=== PATIENT | male | born 1965 | race Caucasian/White ===

== ENCOUNTER 2017-01-15 13:42 | Emergency (ER) | payer MEDICARE, MEDICAID ==
--- NOTE | 2017-01-15 14:46 | EDM.PDOCBH ---
<OfficerNiko - Last Filed: 01/15/17 14:44> ED HPI GENERAL MEDICAL PROBLEM - General Chief Complaint: Behavioral/Psych Stated Complaint: ANXIETY Time Seen by Provider: 01/15/17 14:35 Source of Information: Reports: Patient, RN Notes Reviewed History Limitations: Reports: No Limitations - History of Present Illness INITIAL COMMENTS - FREE TEXT/NARRATIVE: 51-year-old gentleman presents emergency department today with complaint of suicidal ideation, he states he wants to harm himself does want to live anymore he does not have a plan he is also experiencing significant anxiety does have what he describes with auditory and visual hallucinations however he is not specific Generalized Pain Score (Numeric/FACES): 7 - Related Data Allergies Allergy/AdvReac Type Severity Reaction Status Date / Time Penicillins Allergy Unknown Rash Verified 01/15/17 14:18 Home Meds: Home Meds Zolpidem Tartrate [Zolpidem Tartrate] 1 tab PO BEDTIME 01/15/17 [History] Past Medical History HEENT History: Reports: Impaired Vision Psychiatric History: Reports: Addiction, Aggressive/Hostile Behaviors, Anxiety, OCD, Panic Attack, Suicidal Ideation Social & Family History - Tobacco Use Smoking Status *Q: Never Smoker Second Hand Smoke Exposure: No - Caffeine Use Caffeine Use: Reports: Coffee, Energy Drinks, Soda, Tea - Alcohol Use Days Per Week of Alcohol Use: 0 - Recreational Drug Use Recreational Drug Use: No Drug Use in Last 12 Months: No Recreational Drug Type: Reports: Other (see below) ED ROS GENERAL - Review of Systems Review Of Systems: See Below Respiratory: Reports: No Symptoms Cardiovascular: Reports: No Symptoms Psychiatric: Reports: Anxiety, Hallucinations, Suicidal Ideation ED EXAM, BEHAVIORAL HEALTH - Physical Exam Exam: See Below Exam Limited By: No Limitations General Appearance: Alert, WD/WN, No Apparent Distress Eye Exam: Bilateral Eye: Normal Inspection Respiratory/Chest: No Respiratory Distress, Lungs Clear, Normal Breath Sounds, No Accessory Muscle Use, Chest Non-Tender Cardiovascular: Regular Rate, Rhythm, No Murmur GI/Abdominal: Soft, Non-Tender Psychiatric: Alert, Flat Affect, Inattentive, Poor Eye Contact, Withdrawn, Suicidal Plan, Suicidal Thoughts COURSE, BEHAVIORAL HEALTH COMP - Course Vital Signs: Last Vital Signs Temp 36.1 C 01/16/17 07:02 Pulse 77 01/16/17 07:02 Resp 14 01/16/17 07:02 BP 100/71 01/16/17 07:02 Pulse Ox 99 01/16/17 07:02 Orders, Labs, Meds: Laboratory Tests 01/15/17 01/15/17 01/15/17 Range/Units 14:51 14:51 14:54 WBC 9.3 (4.5-11.0) K/uL RBC 5.33 (4.30-5.90) M/uL Hgb 15.7 H (12.0-15.0) g/dL Hct 47.9 (40.0-54.0) % MCV 90 (80-98) fL MCH 30 (27-31) pg MCHC 33 (32-36) % Plt Count 303 (150-400) K/uL Neut % (Auto) 75 H (36-66) % Lymph % (Auto) 17 L (24-44) % [place] % (Auto) 7 H (2-6) % Eos % (Auto) 0 L (2-4) % Baso % (Auto) 0 (0-1) % Sodium (140-148) mmol/L Potassium (3.6-5.2) mmol/L Chloride (100-108) mmol/L Carbon Dioxide (21-32) mmol/L Anion Gap (5.0-14.0) mmol/L BUN (7-18) mg/dL Creatinine (0.8-1.3) mg/dL Est Cr Clr Drug Dosing mL/min Estimated GFR (MDRD) (>60) Glucose (74-106) mg/dL Calcium (8.5-10.1) mg/dL Total Bilirubin (0.2-1.0) mg/dL AST (15-37) U/L ALT (12-78) U/L Alkaline Phosphatase (46-116) U/L Total Protein (6.4-8.2) g/dL Albumin (3.4-5.0) g/dL Globulin (2.3-3.5) g/dL Albumin/Globulin Ratio (1.2-2.2) Urine Color Yellow Urine Appearance Slightly cloudy Urine pH 6.0 (4.5-8.0) Ur Specific [place] 1.025 (1.008-1.030) Urine Protein Negative (NEGATIVE) mg/dL Urine Glucose (UA) Normal (NEGATIVE) mg/dL Urine Ketones 15 H (NEGATIVE) mg/dL Urine Occult Blood Negative (NEGATIVE) Urine Nitrite Negative (NEGAITVE) Urine Bilirubin Small (NEGATIVE) Urine Urobilinogen Normal (NORMAL) mg/dL Ur Leukocyte Esterase Negative (NEGATIVE) Urine RBC 0-5 (0-5) Urine WBC 0-5 (0-5) Ur Epithelial Cells Rare Amorphous Sediment Not seen Urine Bacteria Few Urine Mucus Packed Urine Opiates Screen Negative (NEGATIVE) Ur Oxycodone Screen Negative (NEGATIVE) Urine Methadone Screen Negative (NEGATIVE) Ur Propoxyphene Screen Negative (NEGATIVE) Ur Barbiturates Screen Negative (NEGATIVE) Ur Tricyclics Screen Negative (NEGATIVE) Ur Phencyclidine Scrn Negative (NEGATIVE) Ur Amphetamine Screen Negative (NEGATIVE) U Methamphetamines Scrn Negative (NEGATIVE) Urine MDMA Screen Negative (NEGATIVE) U Benzodiazepines Scrn Negative (NEGATIVE) U Cocaine Metab Screen Negative (NEGATIVE) U Marijuana (THC) Screen Negative (NEGATIVE) 01/15/17 Range/Units 14:54 WBC (4.5-11.0) K/uL RBC (4.30-5.90) M/uL Hgb (12.0-15.0) g/dL Hct (40.0-54.0) % MCV (80-98) fL MCH (27-31) pg MCHC (32-36) % Plt Count (150-400) K/uL Neut % (Auto) (36-66) % Lymph % (Auto) (24-44) % [place] % (Auto) (2-6) % Eos % (Auto) (2-4) % Baso % (Auto) (0-1) % Sodium 143 (140-148) mmol/L Potassium 4.3 (3.6-5.2) mmol/L Chloride 105 (100-108) mmol/L Carbon Dioxide 28 (21-32) mmol/L Anion Gap 9.8 (5.0-14.0) mmol/L BUN 13 (7-18) mg/dL Creatinine 0.8 (0.8-1.3) mg/dL Est Cr Clr Drug Dosing 95.94 mL/min Estimated GFR (MDRD) > 60 (>60) Glucose 146 H (74-106) mg/dL Calcium 9.6 (8.5-10.1) mg/dL Total Bilirubin 1.1 H D (0.2-1.0) mg/dL AST 14 L (15-37) U/L ALT 24 (12-78) U/L Alkaline Phosphatase 128 H (46-116) U/L Total Protein 7.8 (6.4-8.2) g/dL Albumin 4.1 (3.4-5.0) g/dL Globulin 3.7 H (2.3-3.5) g/dL Albumin/Globulin Ratio 1.1 L (1.2-2.2) Urine Color Urine Appearance Urine pH (4.5-8.0) Ur Specific [place] (1.008-1.030) Urine Protein (NEGATIVE) mg/dL Urine Glucose (UA) (NEGATIVE) mg/dL Urine Ketones (NEGATIVE) mg/dL Urine Occult Blood (NEGATIVE) Urine Nitrite (NEGAITVE) Urine Bilirubin (NEGATIVE) Urine Urobilinogen (NORMAL) mg/dL Ur Leukocyte Esterase (NEGATIVE) Urine RBC (0-5) Urine WBC (0-5) Ur Epithelial Cells Amorphous Sediment Urine Bacteria Urine Mucus Urine Opiates Screen (NEGATIVE) Ur Oxycodone Screen (NEGATIVE) Urine Methadone Screen (NEGATIVE) Ur Propoxyphene Screen (NEGATIVE) Ur Barbiturates Screen (NEGATIVE) Ur Tricyclics Screen (NEGATIVE) Ur Phencyclidine Scrn (NEGATIVE) Ur Amphetamine Screen (NEGATIVE) U Methamphetamines Scrn (NEGATIVE) Urine MDMA Screen (NEGATIVE) U Benzodiazepines Scrn (NEGATIVE) U Cocaine Metab Screen (NEGATIVE) U Marijuana (THC) Screen (NEGATIVE) Medications Discontinued Medications Generic Name Dose Route Start Last Admin Trade Name Freq PRN Reason Stop Dose Admin Diphenhydramine HCl 50 mg 01/15/17 17:02 01/15/17 18:00 Benadryl IM 01/15/17 17:03 50 mg ONETIME ONE Administration Haloperidol 5 mg 01/15/17 17:46 01/15/17 17:59 Haldol PO 01/15/17 17:47 5 mg ONETIME ONE Administration Haloperidol Lactate 5 mg 01/15/17 17:02 01/15/17 18:01 Haldol IM 01/15/17 17:03 Not Given ONETIME ONE Lorazepam 1 mg 01/15/17 15:25 01/15/17 15:35 Ativan PO 01/15/17 15:26 1 mg ONETIME ONE Administration Lorazepam 2 mg 01/15/17 17:02 01/15/17 18:01 Ativan IM 01/15/17 17:03 Not Given ONETIME ONE Lorazepam 2 mg 01/15/17 17:49 01/15/17 17:57 Ativan PO 01/15/17 17:50 2 mg ONETIME ONE Administration Lorazepam 1 mg 01/16/17 09:27 01/16/17 09:36 Ativan PO 01/16/17 09:28 1 mg ONETIME ONE Administration Departure - Departure Disposition: Home, Self-Care 01 Clinical Impression: Depression, Anxiety - Discharge Information Referrals: Tate Velásquez, CLAIM APPROVER [Primary Care Provider] - Forms: ED Department Discharge Care Plan Goals: appt with Tate Vaughn tomorrow at 1 pm, appt with Katelin Patel on the and later he will have appt with Ana for med evaluation. He has a [employer] worker set up for him. He will return to his apartment at [address]. He has 23 days of ambien left according to his perscription <Jenifer Jeffrey - Last Filed: 01/16/17 12:01> Departure - Departure Time of Disposition: 11:58 Condition: Fair
[2017-01-15] MEDS ORDERED: LORazepam 1 MG Tab PO ONE ×2 (15:25→17:49)
[2017-01-15] MEDS ORDERED: LORazepam 2 MG/ML MDV IM ONE (17:02)
[2017-01-15] MEDS ORDERED: diphenhydrAMINE 50 MG/ML SDV IM ONE (17:02)
[2017-01-15] MEDS ORDERED: Haloperidol Lactate 5 MG/ML SDV IM ONE (17:02)
[2017-01-15] MEDS ORDERED: Haloperidol 5 MG Tab PO ONE (17:46)
[2017-01-16] MEDS ORDERED: LORazepam 1 MG Tab PO ONE (09:27)
[2017-01-16] MEDS ORDERED: LORazepam 0.5 MG Tab PO ONE (12:03)
[2017-01-16 12:38] VITALS: BP 101/71
== END 2017-01-16 12:40 | disposition home or self-care (01) ==
LOC: JP.ED 13:42
DX: F41.9 Anxiety disorder, unspecified (principal); F32.9 Major depressive disorder, single episode, unspecified; R45.851 Suicidal ideations; Z88.0 Allergy status to penicillin
CPT/HCPCS: 36415; 80053; 80305; 81001; 85025; 96372; 99285; A9270; J1200; 99284

== ENCOUNTER 2017-03-21 07:32 | Emergency (ER) | payer MEDICARE, MEDICAID ==
[2017-03-21 07:47] VITALS: BP 127/86
--- NOTE | 2017-03-21 08:19 | EDM.PDOCBH ---
ED HPI GENERAL MEDICAL PROBLEM - General Chief Complaint: Behavioral/Psych Stated Complaint: DEPRESSED/NOT EATING/WITHDRAWL Time Seen by Provider: 03/21/17 08:14 Source of Information: Reports: Patient, RN Notes Reviewed, Other (Social work) History Limitations: Reports: No Limitations - History of Present Illness INITIAL COMMENTS - FREE TEXT/NARRATIVE: 51-year-old gentleman presents emergency department today requesting refill of Ativan. He states he has not been able to sleep for a couple of days is nauseated and can't eat is trying to wean himself off Xanax. Review of medical records show he did receive 140 Xanax on March 15 6 days prior he tells me he flushed his medication down the toilet yesterday. He was evaluated by his primary care yesterday with the same request as above primary care recommended to continue with the plan of weaning him off Xanax he does have an appointment with counseling and behavioral health however he has always canceled and no showed for these appointments. Denies suicidal ideation Generalized Pain Score (Numeric/FACES): 7 - Related Data Allergies Allergy/AdvReac Type Severity Reaction Status Date / Time Penicillins Allergy Unknown Rash Verified 03/21/17 07:50 Home Meds: Home Meds Zolpidem Tartrate [Zolpidem Tartrate] 1 tab PO BEDTIME 01/15/17 [History] ALPRAZolam [Alprazolam] 1 mg PO QID 03/21/17 [History] Past Medical History HEENT History: Reports: Impaired Vision Psychiatric History: Reports: Addiction (Benzodiazepine), Aggressive/Hostile Behaviors, Anxiety, Depression, OCD, Panic Attack, Psych Hospitalization(s), Suicide Attempt, Suicidal Ideation Dermatologic History: Reports: Other (See Below) Other Dermatologic History: melanoma Social & Family History - Tobacco Use Smoking Status *Q: Never Smoker Second Hand Smoke Exposure: No - Caffeine Use Caffeine Use: Reports: Coffee, Energy Drinks, Soda, Tea - Alcohol Use Days Per Week of Alcohol Use: 0 - Recreational Drug Use Recreational Drug Use: No Drug Use in Last 12 Months: No Recreational Drug Type: Reports: Other (see below) ED ROS GENERAL - Review of Systems Review Of Systems: See Below Constitutional: Reports: No Symptoms HEENT: Reports: No Symptoms Respiratory: Reports: No Symptoms Cardiovascular: Reports: No Symptoms GI/Abdominal: Reports: Nausea : Reports: No Symptoms Musculoskeletal: Reports: No Symptoms Skin: Reports: No Symptoms Neurological: Reports: No Symptoms Psychiatric: Reports: Agitation, Cravings. Denies: Homicidal Ideation, Suicidal Ideation ED EXAM, BEHAVIORAL HEALTH - Physical Exam Exam: See Below (Without IV) Text/Narrative:: Orientated to person place and time, appropriately dressed, well groomed, memory to recent and remote events intact, good attention and concentration, speech is of adequate rate tone and volume, good fund of knowledge, language is appropriate, pleasant and cooperative,, Mood and affect are euthymic, no pressured thoughts, denies suicidal ideation, denies homicidal ideation, no hallucinations visual or auditory, poor judgment, poor insight Exam Limited By: No Limitations General Appearance: Alert, WD/WN, No Apparent Distress Eye Exam: Left Eye: Conjunctival Injection, Bilateral Eye: Normal Fundi, Normal Inspection, PERRL Respiratory/Chest: No Respiratory Distress, Lungs Clear, Normal Breath Sounds Cardiovascular: Regular Rate, Rhythm, No Murmur GI/Abdominal: Soft, Non-Tender COURSE, BEHAVIORAL HEALTH COMP - Course Vital Signs: Last Vital Signs Temp 96.1 F 03/21/17 07:49 Pulse 89 03/21/17 07:49 Resp 16 03/21/17 07:49 BP 127/86 03/21/17 07:49 Pulse Ox 99 03/21/17 07:49 Orders, Labs, Meds: Active Orders 24 hr Category Date Time Status Peripheral IV Care [RC] . DIRECTED Care 03/21/17 08:31 Active Sodium Chloride 0.9% [Normal Saline] 1,000 ml Med 03/21/17 08:45 Active IV ASDIRECTED Sodium Chloride 0.9% [Saline Flush] Med 03/21/17 08:31 Active 10 ml FLUSH ASDIRECTED PRN Peripheral IV Insertion Adult [OM.PC] Urgent Oth 03/21/17 08:31 Ordered Medication Orders Sodium Chloride (Normal Saline) 1,000 mls @ 999 mls/hr IV ASDIRECTED PAULINO Last Admin: 03/21/17 08:48 Dose: 999 mls/hr Sodium Chloride (Saline Flush) 10 ml FLUSH ASDIRECTED PRN PRN Reason: Keep Vein Open Laboratory Tests 03/21/17 03/21/17 03/21/17 Range/Units 09:15 09:15 09:15 WBC 7.1 (4.5-11.0) K/uL RBC 5.06 (4.30-5.90) M/uL Hgb 15.0 (12.0-15.0) g/dL Hct 44.2 (40.0-54.0) % MCV 87 (80-98) fL MCH 30 (27-31) pg MCHC 34 (32-36) % Plt Count 273 (150-400) K/uL Neut % (Auto) 72 H (36-66) % Lymph % (Auto) 18 L (24-44) % [place] % (Auto) 9 H (2-6) % Eos % (Auto) 1 L (2-4) % Baso % (Auto) 0 (0-1) % Sodium 144 (140-148) mmol/L Potassium 3.7 (3.6-5.2) mmol/L Chloride 106 (100-108) mmol/L Carbon Dioxide 29 (21-32) mmol/L Anion Gap 8.8 (5.0-14.0) mmol/L BUN 12 (7-18) mg/dL Creatinine 0.8 (0.8-1.3) mg/dL Est Cr Clr Drug Dosing 92.28 mL/min Estimated GFR (MDRD) > 60 (>60) Glucose 108 H (74-106) mg/dL Calcium 8.6 (8.5-10.1) mg/dL Total Bilirubin 0.8 (0.2-1.0) mg/dL AST 16 (15-37) U/L ALT 17 (12-78) U/L Alkaline Phosphatase 105 (46-116) U/L Total Protein 6.3 L (6.4-8.2) g/dL Albumin 3.6 (3.4-5.0) g/dL Globulin 2.7 (2.3-3.5) g/dL Albumin/Globulin Ratio 1.3 (1.2-2.2) TSH, Ultra Sensitive 0.694 (0.358-3.740) uIU/mL Urine Color Urine Appearance Urine pH (4.5-8.0) Ur Specific [place] (1.008-1.030) Urine Protein (NEGATIVE) mg/dL Urine Glucose (UA) (NEGATIVE) mg/dL Urine Ketones (NEGATIVE) mg/dL Urine Occult Blood (NEGATIVE) Urine Nitrite (NEGAITVE) Urine Bilirubin (NEGATIVE) Urine Urobilinogen (NORMAL) mg/dL Ur Leukocyte Esterase (NEGATIVE) Urine RBC (0-5) Urine WBC (0-5) Ur Epithelial Cells Amorphous Sediment Urine Bacteria Urine Mucus Urine Opiates Screen (NEGATIVE) Ur Oxycodone Screen (NEGATIVE) Urine Methadone Screen (NEGATIVE) Ur Propoxyphene Screen (NEGATIVE) Ur Barbiturates Screen (NEGATIVE) Ur Tricyclics Screen (NEGATIVE) Ur Phencyclidine Scrn (NEGATIVE) Ur Amphetamine Screen (NEGATIVE) U Methamphetamines Scrn (NEGATIVE) Urine MDMA Screen (NEGATIVE) U Benzodiazepines Scrn (NEGATIVE) U Cocaine Metab Screen (NEGATIVE) U Marijuana (THC) Screen (NEGATIVE) 03/21/17 03/21/17 Range/Units 10:25 10:25 WBC (4.5-11.0) K/uL RBC (4.30-5.90) M/uL Hgb (12.0-15.0) g/dL Hct (40.0-54.0) % MCV (80-98) fL MCH (27-31) pg MCHC (32-36) % Plt Count (150-400) K/uL Neut % (Auto) (36-66) % Lymph % (Auto) (24-44) % [place] % (Auto) (2-6) % Eos % (Auto) (2-4) % Baso % (Auto) (0-1) % Sodium (140-148) mmol/L Potassium (3.6-5.2) mmol/L Chloride (100-108) mmol/L Carbon Dioxide (21-32) mmol/L Anion Gap (5.0-14.0) mmol/L BUN (7-18) mg/dL Creatinine (0.8-1.3) mg/dL Est Cr Clr Drug Dosing mL/min Estimated GFR (MDRD) (>60) Glucose (74-106) mg/dL Calcium (8.5-10.1) mg/dL Total Bilirubin (0.2-1.0) mg/dL AST (15-37) U/L ALT (12-78) U/L Alkaline Phosphatase (46-116) U/L Total Protein (6.4-8.2) g/dL Albumin (3.4-5.0) g/dL Globulin (2.3-3.5) g/dL Albumin/Globulin Ratio (1.2-2.2) TSH, Ultra Sensitive (0.358-3.740) uIU/mL Urine Color Yellow Urine Appearance Cloudy Urine pH 7.0 (4.5-8.0) Ur Specific [place] 1.015 (1.008-1.030) Urine Protein Negative (NEGATIVE) mg/dL Urine Glucose (UA) Normal (NEGATIVE) mg/dL Urine Ketones 15 H (NEGATIVE) mg/dL Urine Occult Blood Negative (NEGATIVE) Urine Nitrite Negative (NEGAITVE) Urine Bilirubin Negative (NEGATIVE) Urine Urobilinogen Normal (NORMAL) mg/dL Ur Leukocyte Esterase Negative (NEGATIVE) Urine RBC Not seen (0-5) Urine WBC Not seen (0-5) Ur Epithelial Cells Not seen Amorphous Sediment Moderate Urine Bacteria Not seen Urine Mucus Not seen Urine Opiates Screen Negative (NEGATIVE) Ur Oxycodone Screen Negative (NEGATIVE) Urine Methadone Screen Negative (NEGATIVE) Ur Propoxyphene Screen Negative (NEGATIVE) Ur Barbiturates Screen Negative (NEGATIVE) Ur Tricyclics Screen Negative (NEGATIVE) Ur Phencyclidine Scrn Negative (NEGATIVE) Ur Amphetamine Screen Negative (NEGATIVE) U Methamphetamines Scrn Negative (NEGATIVE) Urine MDMA Screen Negative (NEGATIVE) U Benzodiazepines Scrn Positive H (NEGATIVE) U Cocaine Metab Screen Negative (NEGATIVE) U Marijuana (THC) Screen Negative (NEGATIVE) Medications Generic Name Dose Route Start Last Admin Trade Name Freq PRN Reason Stop Dose Admin Sodium Chloride 1,000 mls @ 999 mls/hr 03/21/17 08:45 03/21/17 08:48 Normal Saline IV 999 mls/hr ASDIRECTED PAULINO Administration Sodium Chloride 10 ml 03/21/17 08:31 Saline Flush FLUSH ASDIRECTED PRN Keep Vein Open Discontinued Medications Generic Name Dose Route Start Last Admin Trade Name Freq PRN Reason Stop Dose Admin Ondansetron HCl 4 mg 03/21/17 08:31 03/21/17 09:18 Zofran IVPUSH 03/21/17 08:32 4 mg ONETIME ONE Administration Departure - Departure Time of Disposition: 11:24 Disposition: Home, Self-Care 01 Condition: Fair Clinical Impression: Addiction to drug - Discharge Information Referrals: Tate Velásquez NP [Primary Care Provider] - Forms: ED Department Discharge Additional Instructions: Please follow-up with your primary care provider and your social media community manager for further placement issues - My Orders Last 24 Hours: My Active Orders 03/21/17 08:31 Peripheral IV Care [RC] . DIRECTED Sodium Chloride 0.9% [Saline Flush] 10 ml FLUSH ASDIRECTED PRN Peripheral IV Insertion Adult [OM.PC] Urgent 03/21/17 08:45 Sodium Chloride 0.9% [Normal Saline] 1,000 ml IV ASDIRECTED - Assessment/Plan Last 24 Hours: My Active Orders 03/21/17 08:31 Peripheral IV Care [RC] . DIRECTED Sodium Chloride 0.9% [Saline Flush] 10 ml FLUSH ASDIRECTED PRN Peripheral IV Insertion Adult [OM.PC] Urgent 03/21/17 08:45 Sodium Chloride 0.9% [Normal Saline] 1,000 ml IV ASDIRECTED Plan: Assessment Acuity = chronic Site and laterality = generalized anxiety disorder with dependence on benzodiazepines, blepheritis Etiology = unclear etiology Manifestations = craving Location of injury = Home Lab values = none Plan I informed him because he recently had a refill of 140 Xanax to 6 days prior and he does have a primary care in [facility] who doesn't plan to help with his benzodiazepine addiction I would not be providing any benzodiazepine medication I did offer him Zofran I also offered him placement in a detox facility for his addiction. He has declined both of these measures states he will not leave until he receives Ativan. I called administration for the emergency department to review and discuss options with him. After consultation with administration he agreed to 1 L of IV fluids, IV Zofran 4 mg and a prescription for Zofran and he would leave peacefully follow-up with his primary care. The initial IV blew and he refused a second IV, he states he needs to be admitted to hospital because he is sick I offered lab work and he then stated he was mentally ill I offered admission to a psychiatric facility which he declined states he wants to be admitted here, therefore will draw lab work CBC, CMP UA and drug screen. While waiting for lab work and urine results he did complain of difficulty seeing out of his left eye with increased redness that has been ongoing for a month vision was acceptable at 20/30 examination I please see record for details additional diagnosis of blepharitis will try warm compresses also placed on erythromycin antibiotics. I did review his lab work with him which included a CBC, CMP and thyroid all normal urinalysis normal urine drug screen positive for benzodiazepines,, he is now requesting foster care placement this has been reviewed in the past with the social media community manager recommend he continue to work on that he has been placed in crisis beds in [place] where he left the next day so that is not an option at this time. Therefore discharged home he'll continue to work with his social media community manager for placement options no benzodiazepines provided This note was dictated using [employer] voice recognition software please call with any questions on syntax or gayatri.
[2017-03-21] MEDS ORDERED: Ondansetron 4 MG/2 ML SDV IVPUSH ONE (08:31)
[2017-03-21] MEDS ORDERED: Sodium Chloride 0.9% 10 ML Syringe FLUSH PRN (08:31)
[2017-03-21] MEDS ORDERED: Sodium Chloride 0.9% 1,000 ML IV SCH (08:45)
== END 2017-03-21 11:45 | disposition home or self-care (01) ==
LOC: JP.ED 07:32
DX: F13.280 Sedative, hypnotic or anxiolytic dependence with sedative, hypnotic or anxiolytic-induced anxiety disorder (principal); H01.009 Unspecified blepharitis unspecified eye, unspecified eyelid; Z88.0 Allergy status to penicillin; Z79.899 Other long term (current) drug therapy
CPT/HCPCS: 36415; 80053; 80305; 81001; 84443; 85025; 96361; 96374; 99284; 99285; J2405; J7040; J7030

== ENCOUNTER 2017-03-22 16:39 | Emergency (ER) | payer MEDICARE, MEDICAID ==
--- NOTE | 2017-03-22 19:01 | EDM.PDOC ---
ED HPI GENERAL MEDICAL PROBLEM - General Chief Complaint: General Stated Complaint: NOT EATING / WITNESSED SEIZURE LIKE EPISODE Time Seen by Provider: 03/22/17 18:24 Source of Information: Reports: Patient, Family (brother), Old Records, RN Notes Reviewed History Limitations: Reports: Other (poor historian, does not remember all events/details) - History of Present Illness INITIAL COMMENTS - FREE TEXT/NARRATIVE: Brought in by brother Chief complaint: Abnormal behavior, possible seizure spells History of present illness 51-year-old male, with documented history of drug abuse depression anxiety. If you have clinic records also reveals a diagnosis of encephalopathy. In the past he has been treated for major depression with Darinel, he was hospitalized 45 days at a [facility] behavioral health unit in [facility] and did very well for several months after that discharge. He has been followed by mental health in the past, but does not believe that he seen anybody in the last year. He has been seen by the physician assistant general manager and physicians at the local clinic, was on Ambien and on alprazolam up to 4 tablets daily. However he usually is requesting increasing doses of his medications and of other medications in particular lorazepam. From his chart in the past he had some opiate and alcohol abuse as well. Today's events that brought him to emergency: He was in the car with his brother, about to turn into [employer] when the patient had sudden onset of chest pain on the left side, lasting about 20 seconds then resolved. While in the drive-through [place], waiting for the food to come, he had sudden onset of twitching spasms involving his whole body, lasting about 3 seconds, without consciousness and without postictal confusion. It was thought that he might of had a seizure. However behavior was normal afterwards. In the waiting room here, he was observed to have significant tremors and shakiness of his left foot. Patient reports these had some left-sided weakness, but denies headaches denies confusion however did not initially remember pain here yesterday or perhaps was denying memory of it. Patient did give permission to talk to his brother and his brother has requested copies of the records from yesterday which will not be provided tonight but will be passed through health information. When seen yesterday, extensive testing was done because of the concerns of drug withdrawal. Urine drug screen was positive for benzodiazepines which she had been prescribed. No other evidence of drug or alcohol ingestion. He resisted being discharged, insisting on admission or prescription of benzodiazepines and eventually consented to and was given intravenous fluids and ondansetron for nausea. He also was seen by social studies teacher, Karina, who is aware of the situation and has applied for foster care for him. His brother informs me that he was in his best after he was at a chemical behavioral unit that he had been placed on Abilify at that time. He has been known to secret his medications at home, and although he states he flushed away his alprazolam prescription, his brother thinks it's quite likely that he still has a home because Sylvia gives him something for when he is not prescribed anything by physicians. He had been receiving regular prescriptions of alprazolam 4 tablets per day. His last prescription 140 tablets was written and pickup March 15 No suicidal thoughts, does not want psychiatric admission. Yesterday he refused admission to detox for chemical withdrawal and treatment He is on disability because of major depression/mental health, lives in his own apartment does have a van, does drive. - Related Data Allergies Allergy/AdvReac Type Severity Reaction Status Date / Time Penicillins Allergy Unknown Rash Verified 03/22/17 17:31 Home Meds: Home Meds Zolpidem Tartrate [Zolpidem Tartrate] 1 tab PO BEDTIME 01/15/17 [History] ALPRAZolam [Alprazolam] 1 mg PO QID 03/21/17 [History] Past Medical History HEENT History: Reports: Impaired Vision Psychiatric History: Reports: Addiction, Aggressive/Hostile Behaviors, Anxiety, Depression, OCD, Panic Attack, Psych Hospitalization(s), Suicide Attempt, Suicidal Ideation Dermatologic History: Reports: Other (See Below) Other Dermatologic History: melanoma Social & Family History - Tobacco Use Smoking Status *Q: Former Smoker Used Tobacco, but Quit: Yes Month Tobacco Last Used: 0 Second Hand Smoke Exposure: No - Caffeine Use Caffeine Use: Reports: Coffee, Energy Drinks, Soda, Tea - Alcohol Use Days Per Week of Alcohol Use: 0 - Recreational Drug Use Recreational Drug Use: No Drug Use in Last 12 Months: No Recreational Drug Type: Reports: Other (see below) ED ROS GENERAL - Review of Systems Review Of Systems: See Below Constitutional: Reports: Diaphoresis, Decreased Appetite, Weight Loss. Denies: Fever HEENT: Reports: No Symptoms, Vertigo Cardiovascular: Reports: Chest Pain. Denies: Lightheadedness, Syncope Endocrine: Reports: No Symptoms GI/Abdominal: Reports: Decreased Appetite. Denies: Abdominal Pain, Diarrhea, Difficulty Swallowing, Nausea, Vomiting : Reports: No Symptoms Musculoskeletal: Reports: Muscle Pain. Denies: Joint Swelling Skin: Reports: No Symptoms Neurological: Reports: Difficulty Walking (Some balance problems), Other ( Weakness left side). Denies: Dizziness, Headache, Paresthesia Psychiatric: Reports: Anxiety, Depression. Denies: Hallucinations, Suicidal Ideation Hematologic/Lymphatic: Reports: No Symptoms Immunologic: Reports: No Symptoms ED EXAM, GENERAL - Physical Exam Exam: See Below Exam Limited By: No Limitations General Appearance: Other (Somewhat listless and withdrawn, flat affect, not distressed, vital signs normal, no difficulty speaking or breathing) Eye Exam: Bilateral Eye: EOMI, Normal Inspection Ears: Normal External Exam, Hearing Loss (Mild decrease) Nose: Normal Inspection Throat/Mouth: Other (Significant dental caries and loss of teeth) Head: Atraumatic Neck: Supple, Full Range of Motion Respiratory/Chest: No Respiratory Distress, Lungs Clear, Other (Very sensitive to touch anywhere at multiple spots around his chest that he'll actually withdraw when he is touched in certain spots or grabs my hand, denies it being painful but it causes a reaction and contraction of his muscles) Cardiovascular: Normal Peripheral Pulses, Regular Rate, Rhythm, No Edema GI/Abdominal: Normal Bowel Sounds, Soft, Non-Tender Extremities: Non-Tender, No Pedal Edema, Normal Capillary Refill Neurological: Oriented, Normal Gait, No Motor/Sensory Deficits, Slow to Respond , Abnormal Reflexes (Somewhat hyperreflexic), Other (Slight ataxia with finger- nose-finger testing but normal correction, normal strength symmetrical bilaterally, normal tandem gait, normal heel walking, Romberg negative) Psychiatric: Flat Affect Skin Exam: Warm, Dry, Normal Color, No Rash Lymphatic: No Adenopathy Course - Vital Signs Last Recorded V/S: Last Vital Signs Temp 37.3 C 03/22/17 19:30 Pulse 69 03/22/17 19:30 Resp 18 03/22/17 17:30 BP 121/73 03/22/17 19:30 Pulse Ox 98 03/22/17 19:30 - Orders/Labs/Meds Orders: Active Orders 24 hr Category Date Time Status EKG Documentation Completion [RC] ASDIRECTED Care 03/22/17 18:57 Active Chest 2V [CR] Stat Exams 03/22/17 18:57 Taken Head wo Cont [CT] Stat Exams 03/22/17 18:57 Taken EKG 12 Lead [EK] Routine Ther 03/22/17 18:57 Ordered - Re-Assessments/Exams Free Text/Narrative Re-Assessment/Exam: 03/22/17 19:17 51-year-old male with history of benzodiazepine and other drug abuse. Muscle contraction episodes today, does not sound like seizure. May be having some withdrawal from benzodiazepines and Ambien. History of major depression, previously on Abilify. Flat affect but denies being suicidal. He had extensive lab tests done yesterday including normal TSH and drug screen negative except for benzodiazepines Presently he feels "stable" and does not experience any pain but does show marked sensitivity to touch and some hyperreflexia. He does report some left-sided weakness. CT head ordered as well as EKG and chest x-ray, labs from yesterday reviewed 03/22/17 19:19 EKG shows normal sinus rhythm, rate 70, normal EKG by my interpretation Chest x-ray normal by my interpretation CT head shows incidental right occipital cyst, not likely because any symptoms Discussed with his brother present, normal results as above. Long-term management with psychiatry is recommended, as it would be better if he is on long-term treatment for his depression was more suitable medication in the potentially habit-forming antianxiety medication unless the psychiatrist is in agreement that that is the best course of treatment. From the clinic notes apparently psychiatry appointment was being arranged. I would also encourage the patient to arrange this if they'll here from the clinic. He again states that he has flushed away the benzodiazepines and does not have them at home so it's possible his symptoms today were some withdrawal symptoms. It does not appear as if he had any seizures. 03/22/17 20:19 Departure - Departure Time of Disposition: 20:20 Disposition: Home, Self-Care 01 Condition: Undetermined Clinical Impression: Chronic depression, Generalized anxiety disorder, Chronic use of benzodiazepine for therapeutic purpose - Discharge Information Instructions: Benzodiazepine Withdrawal Referrals: PCP,None [Primary Care Provider] - Forms: ED Department Discharge Additional Instructions: Consider contacting [facility] to establish ongoing mental health/psychiatry care. You have some underlying depression and anxiety need chronic treatment with a stable medication. The problem with using benzodiazepines as the body gets used to them, they can cause dependence and withdrawal symptoms. Long-term medications for behavioral health should be coordinated with psychiatry consult at least a couple of times per year. - My Orders Last 24 Hours: My Active Orders 03/22/17 18:57 EKG Documentation Completion [RC] ASDIRECTED Chest 2V [CR] Stat Head wo Cont [CT] Stat EKG 12 Lead [EK] Routine - Assessment/Plan Last 24 Hours: My Active Orders 03/22/17 18:57 EKG Documentation Completion [RC] ASDIRECTED Chest 2V [CR] Stat Head wo Cont [CT] Stat EKG 12 Lead [EK] Routine
[2017-03-22 19:30] VITALS: BP 121/73
--- NOTE | 2017-03-23 10:12 | CR ---
Chest 2V FINDINGS: The heart and vascular structures are normal in appearance. No infiltrates or effusions are demonstrated. The skeletal structures are unremarkable. IMPRESSION: Negative exam.
== END 2017-03-22 21:00 | disposition home or self-care (01) ==
LOC: JP.ED 16:39
DX: F32.9 Major depressive disorder, single episode, unspecified (principal); F41.9 Anxiety disorder, unspecified; F19.90 Other psychoactive substance use, unspecified, uncomplicated; Z87.891 Personal history of nicotine dependence; Z88.0 Allergy status to penicillin
CPT/HCPCS: 70450; 71046; 71046-26; 93005; 93010; 99284; 99285-25

== ENCOUNTER 2017-04-05 19:04 | Emergency (ER) | payer MEDICARE, MEDICAID ==
[2017-04-05] MEDS ORDERED: methylPREDNISolone Sodium Succinate 1,000 MG/8 ML SDV STA (20:44)
[2017-04-05] MEDS ORDERED: Bupivacaine 0.5% 30 ML SDV INJECT ONE (20:44)
[2017-04-05] MEDS ORDERED: methylPREDNISolone Acetate 40 MG/ML SDV INJECT ONE (20:50)
--- NOTE | 2017-04-05 20:52 | EDM.PDOC ---
ED HPI GENERAL MEDICAL PROBLEM - General Chief Complaint: Upper Extremity Injury/Pain Stated Complaint: BACK PAIN Time Seen by Provider: 04/05/17 20:35 Source of Information: Reports: Patient, RN, Other (clinic notes) History Limitations: Reports: No Limitations - History of Present Illness INITIAL COMMENTS - FREE TEXT/NARRATIVE: 51 yo male was seen in the clinic today for several problems, among them R shoulder pain. He had an X-ray of that shoulder that was unremarkable. He wanted pain meds, but due to a hx of abuse he was not given any. Due to the continued pain he now comes to the ER. Says his shoulder(R) clicks with movement. Onset: Gradual Onset Date: 04/01/17 Duration: Day(s): Location: Reports: Upper Extremity, Right Quality: Reports: Ache Severity: Moderate Improves with: Reports: Rest Worsens with: Reports: Movement Context: Reports: Other (unknown) Associated Symptoms: Reports: No Other Symptoms Treatments [employer] INST[employer]ER: Reports: Other (see below) (none) right shoulder pain Pain Score (Numeric/FACES): 7 - Related Data Allergies Allergy/AdvReac Type Severity Reaction Status Date / Time Penicillins Allergy Unknown Rash Verified 04/05/17 20:47 clonidine Allergy Cannot Verified 04/05/17 21:08 Remember hydroxyzine [From Vistaril] Allergy Cannot Verified 04/05/17 21:08 Remember quetiapine [From Seroquel] Allergy Cannot Verified 04/05/17 21:08 Remember trazodone Allergy Cannot Verified 04/05/17 21:08 Remember Home Meds: Home Meds Zolpidem Tartrate [Zolpidem Tartrate] 1 tab PO BEDTIME 01/15/17 [History] ALPRAZolam [Alprazolam] 1 mg PO QID 03/21/17 [History] Nortriptyline 50 mg PO BEDTIME PRN #4 cap 04/05/17 [Rx] Past Medical History HEENT History: Reports: Impaired Vision Psychiatric History: Reports: Addiction, Aggressive/Hostile Behaviors, Anxiety, Depression, OCD, Panic Attack, Psych Hospitalization(s), Suicide Attempt, Suicidal Ideation Dermatologic History: Reports: Other (See Below) Other Dermatologic History: melanoma Social & Family History - Tobacco Use Smoking Status *Q: Never Smoker Used Tobacco, but Quit: Yes Month Tobacco Last Used: 0 Second Hand Smoke Exposure: No - Caffeine Use Caffeine Use: Reports: Coffee - Alcohol Use Days Per Week of Alcohol Use: 0 - Recreational Drug Use Recreational Drug Use: No Drug Use in Last 12 Months: No Recreational Drug Type: Reports: Other (see below) Review of Systems - Review of Systems Review Of Systems: See Below Constitutional: Reports: No Symptoms Mouth/Throat: Reports: No Symptoms Respiratory: Reports: No Symptoms Cardiovascular: Reports: No Symptoms GI/Abdominal: Reports: No Symptoms Musculoskeletal: Reports: Shoulder Pain (right) Skin: Reports: No Symptoms Neurological: Reports: No Symptoms ED EXAM, GENERAL - Physical Exam Exam: See Below Exam Limited By: No Limitations General Appearance: Alert, WD/WN, No Apparent Distress Extremities: Normal Inspection, Normal Range of Motion, Other (Has tenderness on palpation over the R A/C joint with palpable clicking noted with movement.) Neurological: Alert, Oriented, CN II-XII Intact, Normal Cognition, No Motor/ Sensory Deficits Psychiatric: Normal Affect, Normal Mood Skin Exam: Warm, Dry, Intact, Normal Color, No Rash Lymphatic: No Adenopathy Course - Vital Signs Text/Narrative:: Injected the R A/C joint with 40 mg Depomedrol and 1.5 ml of 0.5% bupivacaine. Last Recorded V/S: Last Vital Signs Temp 36.4 C 04/05/17 19:58 Pulse 70 04/05/17 19:58 Resp 16 04/05/17 19:58 BP Pulse Ox 96 04/05/17 19:58 - Orders/Labs/Meds Orders: Active Orders 24 hr Category Date Time Status Bupivacaine 0.5% [Marcaine 0.5%] Med 04/05/17 20:44 Once 3 ml INJECT ONETIME ONE methylPREDNISolone Sod Succ [Solu-MEDROL] Med 04/05/17 20:44 Stat 40 mg .XX NOW STA Medication Orders Bupivacaine HCl (Marcaine 0.5%) 3 ml INJECT ONETIME ONE Stop: 04/05/17 20:45 Methylprednisolone Sodium Succinate (Solu-Medrol) 40 mg .XX NOW STA Stop: 04/05/17 20:45 Meds: Medications Generic Name Dose Route Start Last Admin Trade Name Nadiya PRN Reason Stop Dose Admin Bupivacaine HCl 3 ml 04/05/17 20:44 Marcaine 0.5% INJECT 04/05/17 20:45 ONETIME ONE Methylprednisolone Sodium Succinate 40 mg 04/05/17 20:44 Solu-Medrol .XX 04/05/17 20:45 NOW STA Departure - Departure Time of Disposition: 21:09 Disposition: Home, Self-Care 01 Condition: Good Clinical Impression: Acromioclavicular joint pain Qualifiers: Laterality: right Qualified Code(s): M25.511 - Pain in right shoulder Insomnia Qualifiers: Insomnia type: unspecified Qualified Code(s): G47.00 - Insomnia, unspecified - Discharge Information Referrals: Tate Velásquez NP [Primary Care Provider] - - My Orders Last 24 Hours: My Active Orders 04/05/17 20:44 Bupivacaine 0.5% [Marcaine 0.5%] 3 ml INJECT ONETIME ONE methylPREDNISolone Sod Succ [Solu-MEDROL] 40 mg .XX NOW STA - Assessment/Plan Last 24 Hours: My Active Orders 04/05/17 20:44 Bupivacaine 0.5% [Marcaine 0.5%] 3 ml INJECT ONETIME ONE methylPREDNISolone Sod Succ [Solu-MEDROL] 40 mg .XX NOW STA
[2017-04-05] MEDS ORDERED: Nortriptyline 25 MG Cap PO ONE (21:05)
== END 2017-04-05 21:23 | disposition home or self-care (01) ==
LOC: JP.ED 19:04
DX: M25.511 Pain in right shoulder (principal); G47.00 Insomnia, unspecified; Z88.0 Allergy status to penicillin; Z88.8 Allergy status to other drugs, medicaments and biological substances
CPT/HCPCS: 20610; 99283; A9270; J1030

== ENCOUNTER 2017-04-06 17:44 | Emergency (ER) | payer MEDICARE, MEDICAID ==
[2017-04-06 18:09] VITALS: BP 117/71
[2017-04-06] MEDS ORDERED: diphenhydrAMINE 25 MG Cap PO ONE (20:14)
[2017-04-06] MEDS ORDERED: LORazepam 0.5 MG Tab PO ONE (20:15)
--- NOTE | 2017-04-06 20:21 | EDM.PDOC ---
ED HPI GENERAL MEDICAL PROBLEM - General Chief Complaint: Upper Extremity Injury/Pain Stated Complaint: PAIN/SLEEP LOSS Time Seen by Provider: 04/06/17 20:16 Source of Information: Reports: Patient History Limitations: Reports: No Limitations - History of Present Illness INITIAL COMMENTS - FREE TEXT/NARRATIVE: pt arrived with concern because he is not sleeping at nite. He has a mental health appt on the Apr to review meds. Onset: Gradual Duration: Day(s): Location: Reports: Other (pt is not sleeping. ) Associated Symptoms: Reports: Other ( inability to sleep. ) Bilateral Knee Pain Score (Numeric/FACES): 4 - Related Data Allergies Allergy/AdvReac Type Severity Reaction Status Date / Time Penicillins Allergy Unknown Rash Verified 04/06/17 19:16 clonidine Allergy Cannot Verified 04/06/17 19:16 Remember hydroxyzine [From Vistaril] Allergy Cannot Verified 04/06/17 19:16 Remember quetiapine [From Seroquel] Allergy Cannot Verified 04/06/17 19:16 Remember trazodone Allergy Cannot Verified 04/06/17 19:16 Remember Home Meds: Home Meds Zolpidem Tartrate [Zolpidem Tartrate] 1 tab PO BEDTIME 01/15/17 [History] ALPRAZolam [Alprazolam] 1 mg PO QID 03/21/17 [History] Nortriptyline 50 mg PO BEDTIME PRN #4 cap 04/05/17 [Rx] Past Medical History HEENT History: Reports: Impaired Vision Psychiatric History: Reports: Addiction, Aggressive/Hostile Behaviors, Anxiety, Depression, OCD, Panic Attack, Psych Hospitalization(s), Suicide Attempt, Suicidal Ideation Dermatologic History: Reports: Other (See Below) Other Dermatologic History: melanoma Social & Family History - Tobacco Use Smoking Status *Q: Unknown Ever Smoked Used Tobacco, but Quit: Yes Month Tobacco Last Used: 0 Second Hand Smoke Exposure: No - Caffeine Use Caffeine Use: Reports: Coffee - Alcohol Use Days Per Week of Alcohol Use: 0 - Recreational Drug Use Recreational Drug Use: No Drug Use in Last 12 Months: No Recreational Drug Type: Reports: Other (see below) Review of Systems - Review of Systems Review Of Systems: See Below Constitutional: Reports: Other ( pt is not sleeping at nite. ) Eyes: Reports: No Symptoms Ears: Reports: No Symptoms Nose: Reports: No Symptoms Mouth/Throat: Reports: No Symptoms Respiratory: Reports: No Symptoms Cardiovascular: Reports: No Symptoms GI/Abdominal: Reports: No Symptoms Genitourinary: Reports: No Symptoms Musculoskeletal: Reports: Other ED EXAM, GENERAL - Physical Exam Exam: See Below Free Text/Narrative:: pt has not slept for several nites. He is doing better with the shoulder pain. Exam Limited By: No Limitations General Appearance: Alert, Anxious Ears: Normal TMs Nose: Normal Inspection Throat/Mouth: Normal Inspection Head: Atraumatic Neck: Normal Inspection Respiratory/Chest: No Respiratory Distress Cardiovascular: Regular Rate, Rhythm GI/Abdominal: Soft, Non-Tender (Male) Exam: Deferred Rectal (Males) Exam: Deferred Back Exam: Normal Inspection Neurological: Alert, Oriented, Normal Cognition Psychiatric: Anxious Course - Vital Signs Last Recorded V/S: Last Vital Signs Temp 36.8 C 04/06/17 18:07 Pulse 80 04/06/17 18:07 Resp 16 04/06/17 18:07 BP 117/71 04/06/17 18:07 Pulse Ox 97 04/06/17 18:07 - Orders/Labs/Meds Orders: Active Orders 24 hr Category Date Time Status LORazepam [Ativan] Med 04/06/17 20:15 Once 0.5 mg PO ONETIME ONE Meds: Medications Discontinued Medications Generic Name Dose Route Start Last Admin Trade Name Nadiya PRN Reason Stop Dose Admin Diphenhydramine HCl 50 mg 04/06/17 20:14 Benadryl PO 04/06/17 20:15 ONETIME ONE - Re-Assessments/Exams Free Text/Narrative Re-Assessment/Exam: 04/06/17 20:20 pt was given ativan .5 and benadryl 50mg. He lives 2 [place] from here. Departure - Departure Time of Disposition: 20:20 Disposition: Home, Self-Care 01 Clinical Impression: Insomnia Qualifiers: Insomnia type: unspecified Qualified Code(s): G47.00 - Insomnia, unspecified - Discharge Information Referrals: PCP,None [Primary Care Provider] - Care Plan Goals: keep mental health appt, benadryl 50mg, ativan .5 at hs#10 - My Orders Last 24 Hours: My Active Orders 04/06/17 20:15 LORazepam [Ativan] 0.5 mg PO ONETIME ONE - Assessment/Plan Last 24 Hours: My Active Orders 04/06/17 20:15 LORazepam [Ativan] 0.5 mg PO ONETIME ONE
== END 2017-04-06 20:45 | disposition home or self-care (01) ==
LOC: JP.ED 17:44
DX: G47.00 Insomnia, unspecified (principal); F32.9 Major depressive disorder, single episode, unspecified; Z87.891 Personal history of nicotine dependence; Z88.0 Allergy status to penicillin; Z88.8 Allergy status to other drugs, medicaments and biological substances
CPT/HCPCS: 99283; A9270

== ENCOUNTER 2017-05-03 21:44 | Emergency (ER) | payer MEDICARE, MEDICAID ==
[2017-05-03 21:57] VITALS: BP 126/78
== END 2017-05-03 22:10 | disposition left against medical advice (07) ==
LOC: JP.ED 21:44
DX: Z53.21 Procedure and treatment not carried out due to patient leaving prior to being seen by health care provider (principal)

== ENCOUNTER 2017-05-13 17:51 | Emergency (ER) | payer MEDICARE, MEDICAID ==
[2017-05-13 18:27] VITALS: BP 117/74
== END 2017-05-13 19:12 | disposition left against medical advice (07) ==
LOC: JP.ED 17:51
DX: Z53.21 Procedure and treatment not carried out due to patient leaving prior to being seen by health care provider (principal)

== ENCOUNTER 2017-10-23 18:37 | Emergency (ER) | payer MEDICARE, MEDICAID ==
[2017-10-23 18:56] VITALS: BP 117/82
--- NOTE | 2017-10-23 19:41 | EDM.PDOC ---
ED HPI GENERAL MEDICAL PROBLEM - General Chief Complaint: Upper Extremity Injury/Pain Stated Complaint: HURT RIGHT HAND Time Seen by Provider: 10/23/17 19:26 Source of Information: Reports: Patient, RN Notes Reviewed History Limitations: Reports: No Limitations - History of Present Illness INITIAL COMMENTS - FREE TEXT/NARRATIVE: 52-year-old gentleman presents to the emergency department today complaint of right wrist pain, he had a fall on outstretched hand he now has a small lump on the anterior aspect of the wrist which is very painful Right Wrist Pain Score (Numeric/FACES): 7 - Related Data Allergies Allergy/AdvReac Type Severity Reaction Status Date / Time Penicillins Allergy Unknown Rash Verified 10/23/17 18:52 clonidine Allergy Cannot Verified 10/23/17 18:52 Remember hydroxyzine [From Vistaril] Allergy Cannot Verified 10/23/17 18:52 Remember quetiapine [From Seroquel] Allergy Cannot Verified 10/23/17 18:52 Remember trazodone Allergy Cannot Verified 10/23/17 18:52 Remember Home Meds: Home Meds Gabapentin [Neurontin] 600 mg PO DAILY 10/23/17 [History] Past Medical History HEENT History: Reports: Impaired Vision Respiratory History: Reports: Other (See Below) Other Respiratory History: insomina Psychiatric History: Reports: Addiction, Aggressive/Hostile Behaviors, Anxiety, Depression, OCD, Panic Attack, Psych Hospitalization(s), Suicide Attempt, Suicidal Ideation Dermatologic History: Reports: Other (See Below) Other Dermatologic History: melanoma Social & Family History - Tobacco Use Smoking Status *Q: Never Smoker - Caffeine Use Caffeine Use: Reports: Coffee - Recreational Drug Use Recreational Drug Use: No Review of Systems - Review of Systems Review Of Systems: See Below Musculoskeletal: Reports: Joint Pain Skin: Reports: No Symptoms (Right wrist) Neurological: Reports: No Symptoms ED EXAM, GENERAL - Physical Exam Exam: See Below Free Text/Narrative:: Examination of the right wrist he has full range of motion all digits is no tenderness at the elbow no tenderness at the shoulder he has limited range of motion of the wrist secondary to pain there is a small area below the thenar eminence which is bulging feels fluctuant and is tender to the touch bruising can be appreciated over the thenar eminence, radial pulse is +2 sensation is intact Exam Limited By: No Limitations General Appearance: Alert, WD/WN, No Apparent Distress Respiratory/Chest: No Respiratory Distress Course - Vital Signs Last Recorded V/S: Last Vital Signs Temp 98.1 F 10/23/17 19:00 Pulse 75 10/23/17 19:00 Resp 16 10/23/17 19:00 BP 117/82 10/23/17 19:00 Pulse Ox 95 10/23/17 19:00 - Orders/Labs/Meds Orders: Active Orders 24 hr Category Date Time Status Wrist Comp Min 3V Rt [CR] Stat Exams 10/23/17 19:03 Taken DME for Discharge [COMM] Per Unit Routine Oth 10/23/17 19:36 Ordered Departure - Departure Time of Disposition: 19:40 Disposition: Home, Self-Care 01 Condition: Good Clinical Impression: Right wrist sprain Qualifiers: Encounter type: initial encounter Qualified Code(s): S63.501A - Unspecified sprain of right wrist, initial encounter - Discharge Information Referrals: Tate Velásquez TEST EQUIPMENT MECHANIC [Primary Care Provider] - Additional Instructions: Use ibuprofen for baseline pain control, use hydrocodone as needed for breakthrough pain, please call to the [facility] in the morning for an appointment time with orthopedics - My Orders Last 24 Hours: My Active Orders 10/23/17 19:03 Wrist Comp Min 3V Rt [CR] Stat 10/23/17 19:36 DME for Discharge [COMM] Per Unit Routine - Assessment/Plan Last 24 Hours: My Active Orders 10/23/17 19:03 Wrist Comp Min 3V Rt [CR] Stat 10/23/17 19:36 DME for Discharge [COMM] Per Unit Routine Plan: Assessment Acuity = acute Site and laterality = right wrist sprain Etiology = secondary to a fall on outstretched hand Manifestations = pain Location of injury = Home Lab values = wrist x-ray I did review films myself I cannot appreciate any acute process, the official read from radiology is pending Plan She is placed in a wrist splint by nursing staff, provided hydrocodone 5/325 one tab by mouth every 6 hours when necessary total #4, referral was made orthopedics he will call to the clinic in the morning for an appointment time This note was dictated using [employer] voice recognition software please call with any questions on syntax or grammar.
--- NOTE | 2017-10-24 09:08 | CR ---
Wrist Comp Min 3V Rt CLINICAL HISTORY: Pain FINDINGS: There is a tiny calcific or ossific density at the base of the first metacarpal lateral to the carpal metacarpal joint. Impression: Tiny ossific or calcific density lateral to the right the first carpometacarpal joint. Th is could represent a small avulsion fracture.
== END 2017-10-23 19:57 | disposition home or self-care (01) ==
LOC: JP.ED 18:37
DX: S63.501A Unspecified sprain of right wrist, initial encounter (principal); Z79.899 Other long term (current) drug therapy; Z88.0 Allergy status to penicillin; Z88.8 Allergy status to other drugs, medicaments and biological substances; W18.30XA Fall on same level, unspecified, initial encounter
CPT/HCPCS: 73110-26-RT; 73110-RT; 99284

== ENCOUNTER 2017-11-13 10:08 | Emergency (ER) | payer MEDICARE, MEDICAID ==
[2017-11-13 10:21] VITALS: BP 120/80
[2017-11-13] MEDS ORDERED: Sulfamethoxazole/Trimethoprim 800-160 MG Tab PO ONE (10:35)
--- NOTE | 2017-11-13 10:42 | EDM.PDOC ---
ED HPI GENERAL MEDICAL PROBLEM - General Chief Complaint: ENT Problem Stated Complaint: EYE PAIN AND DISCHARGE Time Seen by Provider: 11/13/17 10:25 Source of Information: Reports: Patient, Old Records, RN History Limitations: Reports: No Limitations - History of Present Illness INITIAL COMMENTS - FREE TEXT/NARRATIVE: 52 yo male was seen here 3 d ago for a presumed eye infection. At that time apparently there was not much to be seen on exam and so was asked to follow up with his primary care provider. He returns today significantly worse and tells me he has no family doctor. He says he lives alone and is having a hard time taking care of himself and thinks he needs admission to the hospital. He denies fever. Nasal discharge has been clear. No sore throat or ear pain. No known exposures. 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) Bilateral Eye Pain Score (Numeric/FACES): 3 - Related Data Allergies Allergy/AdvReac Type Severity Reaction Status Date / Time Penicillins Allergy Unknown Rash Verified 11/13/17 10:23 clonidine Allergy Cannot Verified 11/13/17 10:23 Remember hydroxyzine [From Vistaril] Allergy Cannot Verified 11/13/17 10:23 Remember quetiapine [From Seroquel] Allergy Cannot Verified 11/13/17 10:23 Remember trazodone Allergy Cannot Verified 11/13/17 10:23 Remember Home Meds: Home Meds Gabapentin [Neurontin] 600 mg PO DAILY 10/23/17 [History] Zolpidem [Ambien] 5 mg PO BEDTIME #1 tab 11/10/17 [Rx] Bacitracin/Polymyxin B [Polysporin Ophth Oint] 1 inch EYEBOTH TID #1 tube [Rx] Sulfamethoxazole/Trimethoprim [Bactrim Ds Tablet] 1 each PO Q12H #14 tablet 12/21 [Rx] Past Medical History HEENT History: Reports: Impaired Vision Respiratory History: Reports: Other (See Below) Other Respiratory History: insomina Psychiatric History: Reports: Addiction, Aggressive/Hostile Behaviors, Anxiety, Depression, OCD, Panic Attack, Psych Hospitalization(s), Suicide Attempt, Suicidal Ideation Dermatologic History: Reports: Other (See Below) Other Dermatologic History: melanoma - Past Surgical History HEENT Surgical History: Reports: None Respiratory Surgical History: Reports: None Dermatological Surgical History: Reports: None Social & Family History - Family History Family Medical History: Noncontributory - Tobacco Use Smoking Status *Q: Never Smoker Second Hand Smoke Exposure: No - Caffeine Use Caffeine Use: Reports: Coffee - Recreational Drug Use Recreational Drug Use: No ED ROS ENT - Review of Systems Review Of Systems: See Below Constitutional: Reports: No Symptoms HEENT: Reports: Eye Discharge (yellow, bilaterally), Eye Pain, Rhinitis (clear) . Denies: Ear Discharge, Ear Pain, Nosebleed, Throat Pain Respiratory: Reports: No Symptoms Skin: Reports: No Symptoms ED EXAM, ENT - Physical Exam Exam: See Below Exam Limited By: No Limitations General Appearance: Alert, WD/WN, No Apparent Distress Eye Exam: Bilateral Eye: Conjunctival Injection (yellow discharge bilat, left greater than right.), PERRL Ears: Normal External Exam, Normal Canal, Hearing Grossly Normal, Normal TMs Nose: Normal Inspection, Normal Mucousa, No Blood, Clear Rhinorrhea Mouth/Throat: Normal Inspection, Normal Gums, Normal Lips, Normal Oropharynx Head: Atraumatic, Normocephalic Neck: Normal Inspection, Supple Respiratory/Chest: No Respiratory Distress, Lungs Clear, Normal Breath Sounds, No Accessory Muscle Use Cardiovascular: Regular Rate, Rhythm, No Edema Extremities: Normal Inspection Neurological: Alert, Oriented, CN II-XII Intact, Normal Cognition, No Motor/ Sensory Deficits Psychiatric: Normal Affect, Normal Mood Skin: Warm, Dry, Intact, Normal Color, No Rash Lymphatic: No Adenopathy Course - Vital Signs Last Recorded V/S: Last Vital Signs Temp 36.2 C 11/13/17 10:19 Pulse 71 11/13/17 10:19 Resp 16 11/13/17 10:19 BP 120/80 11/13/17 10:19 Pulse Ox 99 11/13/17 10:19 - Orders/Labs/Meds Meds: Medications Discontinued Medications Generic Name Dose Route Start Last Admin Trade Name Freq PRN Reason Stop Dose Admin Acetaminophen 1,000 mg 11/13/17 10:38 11/13/17 10:49 Tylenol Extra Strength PO 11/13/17 10:39 Not Given ONETIME ONE Trimethoprim/Sulfamethoxazole 1 tab 11/13/17 10:35 11/13/17 10:48 Septra Ds PO 11/13/17 10:36 1 tab ONETIME ONE Administration Departure - Departure Time of Disposition: 11:03 Disposition: Home, Self-Care 01 Condition: Good Clinical Impression: Conjunctivitis Qualifiers: Conjunctivitis type: acute Acute conjunctivitis type: bacterial Laterality: bilateral Qualified Code(s): H10.33 - Unspecified acute conjunctivitis, bilateral - Discharge Information *PRESCRIPTION DRUG MONITORING PROGRAM REVIEWED*: Not Applicable *COPY OF PRESCRIPTION DRUG MONITORING REPORT IN PATIENT DELONTE: Not Applicable Prescriptions: Bacitracin/Polymyxin B [Polysporin Ophth Oint] 1 inch EYEBOTH TID #1 tube Sulfamethoxazole/Trimethoprim [Bactrim Ds Tablet] 1 each PO Q12H #14 tablet Instructions: Bacterial Conjunctivitis, [id number] Referrals: Gina Sigala PA-C [Primary Care Provider] - Forms: ED Department Discharge Additional Instructions: Wash hands often with soap and water to prevent further spread. Use both the TMP /SMZ pills and the polysporin ointment as directed for treatment of your infection. Recheck in the clinic before the end of the week, schedule an appt with a provider of your choice. Wash your eye lids with a clean, warm, damp cloth and then put that cloth in the wash to prevent recomtamination.
[2017-11-13] MEDS: Acetaminophen 500 MG Tab PO ONE ×2 (10:48→10:49)
== END 2017-11-13 11:36 | disposition home or self-care (01) ==
LOC: JP.ED 10:08
DX: H10.33 Unspecified acute conjunctivitis, bilateral (principal); F41.9 Anxiety disorder, unspecified; F32.9 Major depressive disorder, single episode, unspecified; Z88.0 Allergy status to penicillin; Z88.8 Allergy status to other drugs, medicaments and biological substances; Z79.899 Other long term (current) drug therapy
CPT/HCPCS: 99283; A9270

== ENCOUNTER 2017-11-30 09:55 | Emergency (ER) | payer MEDICARE, MEDICAID ==
[2017-11-30 10:48] VITALS: BP 114/70
[2017-11-30] MEDS ORDERED: Ketorolac 60 MG/2 ML SDV IM ONE (10:52)
--- NOTE | 2017-11-30 11:21 | EDM.PDOC ---
ED HPI GENERAL MEDICAL PROBLEM - General Chief Complaint: Back Pain or Injury Stated Complaint: PAIN IN RIGHT ARM AND RIGHT LEG AREA Time Seen by Provider: 11/30/17 11:00 Source of Information: Reports: Patient, Old Records, RN History Limitations: Reports: No Limitations - History of Present Illness INITIAL COMMENTS - FREE TEXT/NARRATIVE: 52 yo male frequent visitor to the ER presents with a couple week hx of R arm numbness and weakness, bilateral eye intermittent discharge, and not being able to care for himself. He would like to be admitted to the hospital. He states he was in the clinic about 1.5 weeks ago for these sx's and was turned away. He was seen here within the mos for pink eye and wanted to be admitted for that at that time also. Is also concerned about unexplained wgt loss. Already has appt's with psych and dietary within the week, he mentioned none of this to us-we had to get this through several phone calls. Onset: Unknown/Unsure Duration: Week(s): (2), Waxing/Waning Location: Reports: Face (eyes), Upper Extremity, Right Quality: Reports: Other (numbness R arm with weakness) Severity: Moderate Improves with: Reports: None Worsens with: Reports: Other (? time) Context: Reports: Other (? mental health issues) Associated Symptoms: Reports: Loss of Appetite, Weakness (leyla R arm). 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) Right Arm Pain Score (Numeric/FACES): 7 - Related Data Allergies Allergy/AdvReac Type Severity Reaction Status Date / Time Penicillins Allergy Unknown Rash Verified 11/30/17 10:57 clonidine Allergy Cannot Verified 11/30/17 10:57 Remember hydroxyzine [From Vistaril] Allergy Cannot Verified 11/30/17 10:57 Remember quetiapine [From Seroquel] Allergy Cannot Verified 11/30/17 10:57 Remember trazodone Allergy Cannot Verified 11/30/17 10:57 Remember Home Meds: Home Meds Gabapentin [Neurontin] 600 mg PO DAILY 10/23/17 [History] Bacitracin/Polymyxin B [Polysporin Ophth Oint] 1 inch EYEBOTH TID #1 tube [Rx] Past Medical History HEENT History: Reports: Impaired Vision Respiratory History: Reports: Other (See Below) Other Respiratory History: insomina Psychiatric History: Reports: Addiction, Aggressive/Hostile Behaviors, Anxiety, Depression, OCD, Panic Attack, Psych Hospitalization(s), Suicide Attempt, Suicidal Ideation Dermatologic History: Reports: Other (See Below) Other Dermatologic History: melanoma - Past Surgical History HEENT Surgical History: Reports: None Respiratory Surgical History: Reports: None Dermatological Surgical History: Reports: None Social & Family History - Family History Family Medical History: Noncontributory - Tobacco Use Smoking Status *Q: Never Smoker - Caffeine Use Caffeine Use: Reports: None - Recreational Drug Use Recreational Drug Use: No ED ROS GENERAL - Review of Systems Review Of Systems: See Below Constitutional: Reports: No Symptoms HEENT: Reports: Eye Discharge, Eye Pain (at times) Respiratory: Reports: No Symptoms Cardiovascular: Reports: No Symptoms GI/Abdominal: Reports: No Symptoms : Reports: No Symptoms Musculoskeletal: Reports: No Symptoms Skin: Reports: No Symptoms Neurological: Reports: Numbness (R arm) Psychiatric: Reports: Anxiety ED EXAM, NEURO - Physical Exam Exam: See Below Exam Limited By: No Limitations General Appearance: Alert, WD/WN, No Apparent Distress Eye Exam: Bilateral Eye: Normal Inspection, PERRL Ears: Normal External Exam, Normal Canal, Hearing Grossly Normal, Normal TMs Nose: Normal Inspection, Normal Mucosa, No Blood Throat/Mouth: Normal Inspection, Normal Lips, Normal Oropharynx, Normal Voice, No Airway Compromise Head Exam: Atraumatic, Normocephalic Neck: Normal Inspection, Supple Respiratory/Chest: No Respiratory Distress, Lungs Clear, Normal Breath Sounds, No Accessory Muscle Use Cardiovascular: Regular Rate, Rhythm, No Edema GI/Abdominal: Normal Bowel Sounds, Soft, Non-Tender, No Distention Neurological: Alert, Normal Mood/Affect, Normal Dorsiflexion, CN II-XII Intact, No Motor/Sensory Deficits, Oriented x 3 Back Exam: Normal Inspection Extremities: Normal Inspection, Normal Range of Motion, Non-Tender, No Pedal Edema Psychiatric: Anxious, Flat Affect Skin Exam: Warm, Dry, Intact, Normal Color, No Rash Course - Vital Signs Text/Narrative:: Accepted Ativan 1 mg po, Crisis consultation ordered. Asked for crisis consultation, then walked out of the interview saying he was going to the clinic. Last Recorded V/S: Last Vital Signs Temp 35.8 C 11/30/17 10:58 Pulse 73 11/30/17 10:58 Resp 15 11/30/17 10:58 BP 114/70 11/30/17 10:58 Pulse Ox 98 11/30/17 10:58 - Orders/Labs/Meds Orders: Active Orders 24 hr Category Date Time Status Hemoccult [Fecal Occult Blood Collection] [RC] Care 11/30/17 11:37 Active ASDIRECTED Labs: Laboratory Tests 11/30/17 11/30/17 11/30/17 Range/Units 11:24 11:37 11:38 WBC 6.7 (4.5-11.0) K/uL RBC 5.29 (4.30-5.90) M/uL Hgb 15.5 H (12.0-15.0) g/dL Hct 46.8 (40.0-54.0) % MCV 89 (80-98) fL MCH 29 (27-31) pg MCHC 33 (32-36) % Plt Count 276 (150-400) K/uL ESR (0-20) mm/hr Sodium 138 L (140-148) mmol/L Potassium 3.9 (3.6-5.2) mmol/L Chloride 101 (100-108) mmol/L Carbon Dioxide 30 (21-32) mmol/L Anion Gap 10.9 (5.0-14.0) mmol/L BUN 17 (7-18) mg/dL Creatinine 0.8 (0.8-1.3) mg/dL Est Cr Clr Drug Dosing 93.49 mL/min Estimated GFR (MDRD) > 60 (>60) Glucose 96 (74-106) mg/dL Calcium 9.0 (8.5-10.1) mg/dL Total Bilirubin 1.0 (0.2-1.0) mg/dL AST 16 (15-37) U/L ALT 28 (12-78) U/L Alkaline Phosphatase 108 (46-116) U/L Total Protein 7.3 (6.4-8.2) g/dL Albumin 3.9 (3.4-5.0) g/dL Globulin 3.4 (2.3-3.5) g/dL Albumin/Globulin Ratio 1.1 L (1.2-2.2) PSA Screen 0.9 (0.0-4.0) ug/L Urine Color Urine Appearance Urine pH (4.5-8.0) Ur Specific Condon (1.008-1.030) Urine Protein (NEGATIVE) mg/dL Urine Glucose (UA) (NEGATIVE) mg/dL Urine Ketones (NEGATIVE) mg/dL Urine Occult Blood (NEGATIVE) Urine Nitrite (NEGAITVE) Urine Bilirubin (NEGATIVE) Urine Urobilinogen (NORMAL) mg/dL Ur Leukocyte Esterase (NEGATIVE) Urine RBC (0-5) Urine WBC (0-5) Ur Epithelial Cells Amorphous Sediment Urine Bacteria Urine Mucus Urine Opiates Screen (NEGATIVE) Ur Oxycodone Screen (NEGATIVE) Urine Methadone Screen (NEGATIVE) Ur Propoxyphene Screen (NEGATIVE) Ur Barbiturates Screen (NEGATIVE) Ur Tricyclics Screen (NEGATIVE) Ur Phencyclidine Scrn (NEGATIVE) Ur Amphetamine Screen (NEGATIVE) U Methamphetamines Scrn (NEGATIVE) Urine MDMA Screen (NEGATIVE) U Benzodiazepines Scrn (NEGATIVE) U Cocaine Metab Screen (NEGATIVE) U Marijuana (THC) Screen (NEGATIVE) 11/30/17 11/30/17 11/30/17 Range/Units 11:38 12:08 12:08 WBC (4.5-11.0) K/uL RBC (4.30-5.90) M/uL Hgb (12.0-15.0) g/dL Hct (40.0-54.0) % MCV (80-98) fL MCH (27-31) pg MCHC (32-36) % Plt Count (150-400) K/uL ESR 6 (0-20) mm/hr Sodium (140-148) mmol/L Potassium (3.6-5.2) mmol/L Chloride (100-108) mmol/L Carbon Dioxide (21-32) mmol/L Anion Gap (5.0-14.0) mmol/L BUN (7-18) mg/dL Creatinine (0.8-1.3) mg/dL Est Cr Clr Drug Dosing mL/min Estimated GFR (MDRD) (>60) Glucose (74-106) mg/dL Calcium (8.5-10.1) mg/dL Total Bilirubin (0.2-1.0) mg/dL AST (15-37) U/L ALT (12-78) U/L Alkaline Phosphatase (46-116) U/L Total Protein (6.4-8.2) g/dL Albumin (3.4-5.0) g/dL Globulin (2.3-3.5) g/dL Albumin/Globulin Ratio (1.2-2.2) PSA Screen (0.0-4.0) ug/L Urine Color Yellow Urine Appearance Slightly cloudy Urine pH 8.0 (4.5-8.0) Ur Specific Condon 1.015 (1.008-1.030) Urine Protein Negative (NEGATIVE) mg/dL Urine Glucose (UA) Normal (NEGATIVE) mg/dL Urine Ketones Negative (NEGATIVE) mg/dL Urine Occult Blood Negative (NEGATIVE) Urine Nitrite Negative (NEGAITVE) Urine Bilirubin Negative (NEGATIVE) Urine Urobilinogen Normal (NORMAL) mg/dL Ur Leukocyte Esterase Negative (NEGATIVE) Urine RBC Not seen (0-5) Urine WBC Not seen (0-5) Ur Epithelial Cells Not seen Amorphous Sediment Moderate Urine Bacteria Not seen Urine Mucus Not seen Urine Opiates Screen Negative (NEGATIVE) Ur Oxycodone Screen Negative (NEGATIVE) Urine Methadone Screen Negative (NEGATIVE) Ur Propoxyphene Screen Negative (NEGATIVE) Ur Barbiturates Screen Negative (NEGATIVE) Ur Tricyclics Screen Negative (NEGATIVE) Ur Phencyclidine Scrn Negative (NEGATIVE) Ur Amphetamine Screen Negative (NEGATIVE) U Methamphetamines Scrn Negative (NEGATIVE) Urine MDMA Screen Negative (NEGATIVE) U Benzodiazepines Scrn Negative (NEGATIVE) U Cocaine Metab Screen Negative (NEGATIVE) U Marijuana (THC) Screen Negative (NEGATIVE) Meds: Medications Discontinued Medications Generic Name Dose Route Start Last Admin Trade Name Nadiya PRN Reason Stop Dose Admin Ketorolac Tromethamine 60 mg 11/30/17 10:52 11/30/17 13:43 Toradol IM 11/30/17 10:53 Not Given ONETIME ONE Lorazepam 1 mg 11/30/17 13:24 11/30/17 13:43 Ativan PO 11/30/17 13:25 1 mg ONETIME ONE Administration Departure - Departure Time of Disposition: 15:58 Disposition: Eloped 07 Condition: Fair Clinical Impression: Chronic anxiety - Discharge Information *PRESCRIPTION DRUG MONITORING PROGRAM REVIEWED*: Not Applicable *COPY OF PRESCRIPTION DRUG MONITORING REPORT IN PATIENT DELONTE: Not Applicable Referrals: PCP,None [Primary Care Provider] - (follow up appointments MondayDecember 05 at 9am with Munir SCHULTZI testing at [facility] December 07 at 10am December 20 at 10am with Jony Ovalles then December 20 with Ophthalmic Photographer at 11Am december 20 as well. ) Forms: ED Department Discharge Additional Instructions: Encouraged to follow up with his primary for ongoing care. - My Orders Last 24 Hours: My Active Orders 11/30/17 11:37 Hemoccult [Fecal Occult Blood Collection] [RC] ASDIRECTED - Assessment/Plan Last 24 Hours: My Active Orders 11/30/17 11:37 Hemoccult [Fecal Occult Blood Collection] [RC] ASDIRECTED
[2017-11-30] MEDS ORDERED: LORazepam 1 MG Tab PO ONE (13:24)
== END 2017-11-30 16:28 | disposition left against medical advice (07) ==
LOC: JP.ED 09:55
DX: F41.9 Anxiety disorder, unspecified (principal); Z88.0 Allergy status to penicillin; Z88.8 Allergy status to other drugs, medicaments and biological substances
CPT/HCPCS: 36415; 80053; 80305; 81001; 85027; 85651; 99284; A9270; G0103; 99283

== ENCOUNTER 2017-12-10 12:05 | Emergency (ER) | payer MEDICARE ==
[2017-12-10 12:27] VITALS: BP 98/70
--- NOTE | 2017-12-10 13:04 | EDM.PDOCBH ---
ED HPI GENERAL MEDICAL PROBLEM - General Chief Complaint: Behavioral/Psych Stated Complaint: EVAL Time Seen by Provider: 12/10/17 12:30 Source of Information: Reports: Patient History Limitations: Reports: No Limitations - History of Present Illness INITIAL COMMENTS - FREE TEXT/NARRATIVE: Depression; this is a 52 year old male presents to ER for depression. reports he lives alone in his apartment in [place], [place]. He doesn't feel safe in his home due to depression, has no plans to harm himself or others. Reports he is not doing well at home. He would like to be committed to Inpatient Psych unit. He reports diagnosis of depression, insomnia. hx of drug overdose once as a young adult. last Inpatient Hospitalization was in 2016 at [place], [place] for 30 days. - Related Data Allergies Allergy/AdvReac Type Severity Reaction Status Date / Time Penicillins Allergy Unknown Rash Verified 12/10/17 12:13 clonidine Allergy Cannot Verified 12/10/17 12:13 Remember hydroxyzine [From Vistaril] Allergy Cannot Verified 12/10/17 12:13 Remember quetiapine [From Seroquel] Allergy Cannot Verified 12/10/17 12:13 Remember trazodone Allergy Cannot Verified 12/10/17 12:13 Remember Home Meds: Home Meds Bacitracin/Polymyxin B [Polysporin Ophth Oint] 1 inch EYEBOTH TID #1 tube [Rx] ARIPiprazole [Aripiprazole] 1 tab PO DAILY 12/10/17 [History] Past Medical History HEENT History: Reports: Impaired Vision Respiratory History: Reports: Other (See Below) Other Respiratory History: insomina Psychiatric History: Reports: Addiction, Aggressive/Hostile Behaviors, Anxiety, Depression, OCD, Panic Attack, Psych Hospitalization(s), Suicide Attempt, Suicidal Ideation Dermatologic History: Reports: Other (See Below) Other Dermatologic History: melanoma - Past Surgical History HEENT Surgical History: Reports: None Respiratory Surgical History: Reports: None Dermatological Surgical History: Reports: None Social & Family History - Family History Family Medical History: Noncontributory - Tobacco Use Smoking Status *Q: Never Smoker - Caffeine Use Caffeine Use: Reports: None - Living Situation & Occupation Living situation: Reports: Single, Alone Occupation: Disabled (lives alone in [place], [place]. not able to work due to Mental Illness. His Mother is in Assisted Living in [place], [place]. for the past 2 years, No contact with Brother who lives in town.) ED ROS GENERAL - Review of Systems Review Of Systems: See Below Constitutional: Reports: Other (depression) HEENT: Reports: No Symptoms Respiratory: Reports: No Symptoms Cardiovascular: Reports: No Symptoms Endocrine: Reports: No Symptoms GI/Abdominal: Reports: No Symptoms : Reports: No Symptoms Musculoskeletal: Reports: No Symptoms Skin: Reports: No Symptoms Neurological: Reports: No Symptoms Psychiatric: Reports: Depression (reports does not feel safe at home. no thoughts of harm to self or others.) Hematologic/Lymphatic: Reports: No Symptoms Immunologic: Reports: No Symptoms ED EXAM, BEHAVIORAL HEALTH - Physical Exam Exam: See Below Exam Limited By: Other (depression) General Appearance: Alert, WD/WN, No Apparent Distress, Thin (neat and well groomed.) Eye Exam: Bilateral Eye: Normal Inspection Ears: Normal External Exam, Normal Canal, Hearing Grossly Normal, Normal TMs Nose: Normal Inspection, Normal Mucosa, No Blood Throat/Mouth: Normal Inspection, Normal Lips, Normal Teeth, Normal Gums, Normal Oropharynx, Normal Voice, No Airway Compromise Head: Atraumatic, Normocephalic Neck: Normal Inspection, Supple, Non-Tender, Full Range of Motion Respiratory/Chest: No Respiratory Distress, Lungs Clear, Normal Breath Sounds, No Accessory Muscle Use, Chest Non-Tender Cardiovascular: Normal Peripheral Pulses, Regular Rate, Rhythm, No Edema, No Gallop, No JVD, No Murmur, No Rub GI/Abdominal: Normal Bowel Sounds, Soft, Non-Tender, No Organomegaly, No Distention, No Abnormal Bruit, No Mass (Male) Exam: Deferred Rectal (Males) Exam: Deferred Back Exam: Normal Inspection, Full Range of Motion, NT Extremities: Normal Inspection, Normal Range of Motion, No Pedal Edema, Normal Capillary Refill, Arm Pain (bilateral chronic elbow pain, take motrin for pain control.) Neurological: Alert, Normal Cognition, Normal Gait, Normal Reflexes, No Motor/ Sensory Deficits, Oriented x 3 Psychiatric: Alert, Normal Cognition, Oriented, Depressed Mood, Flat Affect, Tearful, Other (reports does not feel safe at home) Skin Exam: Warm, Dry, Intact, Normal color, No rash COURSE, BEHAVIORAL HEALTH COMP - Course Vital Signs: Last Vital Signs Temp 36.1 C 12/10/17 12:25 Pulse 85 12/10/17 12:25 Resp 14 12/10/17 12:25 BP 98/70 12/10/17 12:25 Pulse Ox 97 12/10/17 12:25 Orders, Labs, Meds: Active Orders 24 hr Category Date Time Status DRUG SCREEN, URINE [URCHEM] Stat Lab 12/10/17 13:04 Ordered Re-Assessment/Re-Exam: Call to Crisis Team at , Team will be called to come to ER to evaluate Mr. Washington. call to [facility] Public Information Specialist, received call from Skyler Hensley, [employer] [facility] of Adult Services for [facility]. asked to be called back with update on plan of care is decided at [phone] order urine drug screen. Time 1430; Crisis Children[employer] Book Author here for evaluation. Crisis Team recommends placement in Inpatient Psych Hospital for acute major depression, with thought of wanting to , no plan. Mr. Sanchez would be unsafe to be at home. will need further care at Inpatient Hospitalization. will make plans for placement today. Departure - Departure Time of Disposition: 15:42 Disposition: DC/Tfer to Psych Hosp/Unit 65 Condition: Good Clinical Impression: Depressive disorder - Discharge Information *PRESCRIPTION DRUG MONITORING PROGRAM REVIEWED*: Not Applicable *COPY OF PRESCRIPTION DRUG MONITORING REPORT IN PATIENT [place]: Not Applicable Instructions: Major Depressive Disorder, Adult Referrals: Gina Sigala PA-C [Primary Care Provider] - Forms: ED Department Discharge - My Orders Last 24 Hours: My Active Orders 12/10/17 13:04 DRUG SCREEN, URINE [URCHEM] Stat - Assessment/Plan Last 24 Hours: My Active Orders 12/10/17 13:04 DRUG SCREEN, URINE [URCHEM] Stat
== END 2017-12-10 16:47 ==
LOC: JP.ED 12:05
DX: F32.9 Major depressive disorder, single episode, unspecified (principal); F41.9 Anxiety disorder, unspecified; Z88.0 Allergy status to penicillin; Z88.8 Allergy status to other drugs, medicaments and biological substances
CPT/HCPCS: 99285

== ENCOUNTER 2021-04-03 08:09 | Emergency (ER) | payer MEDICARE, MEDICAID ==
[2021-04-03 08:31] VITALS: BP 125/106; PULSE 88
== END 2021-04-03 09:31 | disposition home or self-care (01) ==
LOC: JP.ED 08:09
DX: M54.16 Radiculopathy, lumbar region (principal); Z88.0 Allergy status to penicillin; Z88.8 Allergy status to other drugs, medicaments and biological substances; Z88.5 Allergy status to narcotic agent; Z87.891 Personal history of nicotine dependence
CPT/HCPCS: 99283

== ENCOUNTER 2021-05-02 05:10 | Emergency (ER) | payer MEDICARE, MEDICAID ==
[2021-05-02 06:50] LABS: CORONAVIRUS COVID-19 NAA NEGATIVE (NEGATIVE)
[2021-05-02] MEDS: LORazepam 1 MG Tab PO ONE ×2 (08:43→14:51)
[2021-05-02] MEDS: Gabapentin 300 MG Cap PO ONE (14:52)
[2021-05-02 22:08] VITALS: BP 106/77; PULSE 58
== END 2021-05-03 01:22 | disposition left against medical advice (07) ==
LOC: JP.ED 05:10
DX: F32.A Depression, unspecified (principal); F41.0 Panic disorder [episodic paroxysmal anxiety]; M54.10 Radiculopathy, site unspecified; Z20.822 Contact with and (suspected) exposure to COVID-19; Z88.0 Allergy status to penicillin; Z88.5 Allergy status to narcotic agent; Z88.8 Allergy status to other drugs, medicaments and biological substances
CPT/HCPCS: 0241U; 36415; 80053; 80305-QW; 80307; 81001; 85025; 99283; 99284; A9270-GY

== ENCOUNTER 2021-05-04 12:50 | Emergency (ER) | payer MEDICARE, MEDICAID ==
[2021-05-04 13:05] VITALS: BP 119/90; PULSE 84
[2021-05-04] MEDS ORDERED: Gabapentin 300 MG Cap ONE (15:41)
[2021-05-04] MEDS: Gabapentin 300 MG Cap PO SCH ×2 (15:44→20:55)
[2021-05-04 16:26] LABS: CORONAVIRUS COVID-19 NAA NEGATIVE (NEGATIVE)
== END 2021-05-04 20:59 ==
LOC: JP.ED 12:50
DX: F32.A Depression, unspecified (principal); F41.1 Generalized anxiety disorder; F19.20 Other psychoactive substance dependence, uncomplicated; Z88.0 Allergy status to penicillin; Z88.5 Allergy status to narcotic agent; Z88.8 Allergy status to other drugs, medicaments and biological substances; Z20.822 Contact with and (suspected) exposure to COVID-19
CPT/HCPCS: 0241U; 36415; 84443; 99283; 99285; A9270-GY

== ENCOUNTER 2022-03-04 15:02 | Emergency (ER) | payer MEDICARE, MEDICAID ==
[2022-03-04 16:59] VITALS: BP 139/71; PULSE 79
== END 2022-03-04 16:26 | disposition home or self-care (01) ==
LOC: JP.ED 15:02
DX: M79.2 Neuralgia and neuritis, unspecified (principal); G25.81 Restless legs syndrome; Z88.0 Allergy status to penicillin; Z88.8 Allergy status to other drugs, medicaments and biological substances
CPT/HCPCS: 99283

== ENCOUNTER 2024-07-06 18:58 | Emergency (ER) | payer MEDICARE, MEDICAID ==
[2024-07-06 19:56] VITALS: BP 135/89; PULSE 94
[2024-07-06 20:39] LABS: BASOPHILS ABSOLUTE AUTO 0.06 K/uL (0.00-0.10); BASOPHILS PERCENT AUTO 0.7 % (0.1-1.3); EOSINOPHILS ABSOLUTE AUTO 0.13 K/uL (0.00-0.40); EOSINOPHILS PERCENT AUTO 1.6 % (0.0-5.4); HEMATOCRIT 43.9 % (38.4-49.7); IMMATURE GRAN ABSOLUTE AUTO 0.03 K/uL (0.00-0.23); IMMATURE GRAN PERCENT AUTO 0.4 % (0.0-0.7); LYMPHOCYTES ABSOLUTE AUTO 2.42 K/uL (0.8-3.3); MEAN CORPUSCULAR HEMOGLOBIN 31.1 pg (31.6-35.5); MEAN CORPUSCULAR HGB CONC 34.2 g/dL (31.6-35.5); MEAN CORPUSCULAR VOLUME 90.9 fL (81.4-99.0); MONOCYTES ABSOLUTE AUTO 0.82 K/uL (0.20-0.90); MONOCYTES PERCENT AUTO 9.8 % (3.3-12.6); NEUTROPHILS ABSOLUTE AUTO 4.88 K/uL (1.0-7.6); NEUTROPHILS PERCENT AUTO 58.5 % (40.0-78.1); PLATELET COUNT,PLT 309 K/uL (130-375); RED BLOOD CELL COUNT 4.83 M/uL (4.14-5.76); WHITE BLOOD CELL COUNT,WBC 8.3 K/uL (3.2-11.0)
[2024-07-06 21:02] LABS: A/G RATIO 1.2 (1.2-2.2); ALANINE AMINOTRANSFERASE,ALT 35 U/L (12-78); ALBUMIN 4.2 g/dL (3.4-5.0); ALKALINE PHOSPHATASE 136 U/L (46-116); ANION GAP 13.9 mmol/L (5.0-14.0); ASPARTATE AMNIOTRANSFERASE,AST 21 U/L (15-37); BILIRUBIN TOTAL 1.1 mg/dL (0.2-1.0); BLOOD UREA NITROGEN,BUN 11 mg/dL (7-18); CALCIUM 9.4 mg/dL (8.5-10.1); CARBON DIOXIDE,CO2 29 mmol/L (21-32); CHLORIDE,CL 100 mmol/L (100-108); CREATININE 0.8 mg/dL (0.8-1.3); EST CRCL DRUG DOSING (CG) 81.98 mL/min; ESTIMATED GFR 102 mL/min (>60); GLUCOSE RANDOM 105 mg/dL (74-106); POTASSIUM,K 3.9 mmol/L (3.6-5.2); PROTEIN TOTAL,TP 7.7 g/dL (6.4-8.2); SODIUM,NA 139 mmol/L (140-148)
== END 2024-07-07 00:59 | disposition left against medical advice (07) ==
LOC: JP.ED 18:58
DX: R44.0 Auditory hallucinations (principal); Z88.0 Allergy status to penicillin; Z88.5 Allergy status to narcotic agent; Z88.8 Allergy status to other drugs, medicaments and biological substances
CPT/HCPCS: 36415; 80053; 80307; 84443; 85025; 99284

== ENCOUNTER 2024-07-08 15:41 | Emergency (ER) | payer MEDICARE, MEDICAID ==
[2024-07-08 16:47] LABS: BASOPHILS ABSOLUTE AUTO 0.04 K/uL (0.00-0.10); BASOPHILS PERCENT AUTO 0.5 % (0.1-1.3); EOSINOPHILS ABSOLUTE AUTO 0.09 K/uL (0.00-0.40); EOSINOPHILS PERCENT AUTO 1.1 % (0.0-5.4); HEMATOCRIT 42.3 % (38.4-49.7); HEMOGLOBIN 14.4 g/dL (12.9-16.9); IMMATURE GRAN PERCENT AUTO 0.1 % (0.0-0.7); LYMPHOCYTES ABSOLUTE AUTO 1.95 K/uL (0.8-3.3); LYMPHOCYTES PERCENT AUTO 24.5 % (11.4-47.7); MONOCYTES ABSOLUTE AUTO 0.61 K/uL (0.20-0.90); MONOCYTES PERCENT AUTO 7.7 % (3.3-12.6); NEUTROPHILS ABSOLUTE AUTO 5.26 K/uL (1.0-7.6); NEUTROPHILS PERCENT AUTO 66.1 % (40.0-78.1); PLATELET COUNT,PLT 293 K/uL (130-375); RED BLOOD CELL COUNT 4.65 M/uL (4.14-5.76)
[2024-07-08 16:50] LABS: IMMATURE GRAN ABSOLUTE AUTO 0.01 K/uL (0.00-0.23)
[2024-07-08 17:03] LABS: CALCIUM 9.4 mg/dL (8.5-10.1); CREATININE 0.7 mg/dL (0.8-1.3); EST CRCL DRUG DOSING (CG) 98.41 mL/min; POTASSIUM,K 4.2 mmol/L (3.6-5.2)
[2024-07-08 17:07] LABS: ANION GAP 10.2 mmol/L (5.0-14.0)
[2024-07-08] MEDS: LORazepam 1 MG Tab PO ONE (17:18)
[2024-07-08] MEDS: Gabapentin 100 MG Cap PO ONE ×2 (18:39→18:47)
[2024-07-08 18:56] LABS: AMPHETAMINES SCREEN, URINE NEGATIVE (NEGATIVE); BARBITURATE SCREEN,URINE NEGATIVE (NEGATIVE); BENZODIAZEPINES SCREEN,URINE NEGATIVE (NEGATIVE); METHADONE SCREEN, URINE NEGATIVE (NEGATIVE); METHAMPHETAMINES SCREEN, URINE NEGATIVE (NEGATIVE); OXYCODONE SCREEN,URINE NEGATIVE (NEGATIVE); PROPOXYPHENE SCREEN,URINE NEGATIVE (NEGATIVE); THC SCREEN,URINE 50 NG/ML PRESUMPTIVE POSITIVE (NEGATIVE)
[2024-07-09] MEDS: LORazepam 1 MG Tab PO ONE (07:21)
[2024-07-09 08:09] VITALS: BP 122/76; PULSE 73
== END 2024-07-09 08:50 ==
LOC: JP.ED 15:41
DX: F23 Brief psychotic disorder (principal); F12.151 Cannabis abuse with psychotic disorder with hallucinations; Z88.0 Allergy status to penicillin; Z88.8 Allergy status to other drugs, medicaments and biological substances
CPT/HCPCS: 36415; 80048; 80305; 80307; 85025; 99285; A9270

== ENCOUNTER 2024-08-15 17:49 | Emergency (ER) | payer MEDICARE, MEDICAID ==
[2024-08-15 18:43] VITALS: BP 147/81; PULSE 61
[2024-08-15] MEDS: Doxycycline 100 MG Cap PO ONE (19:17)
== END 2024-08-15 19:19 | disposition home or self-care (01) ==
LOC: JP.ED 17:49
DX: S70.362A Insect bite (nonvenomous), left thigh, initial encounter (principal); Z88.0 Allergy status to penicillin; Z88.1 Allergy status to other antibiotic agents; Z88.8 Allergy status to other drugs, medicaments and biological substances; W57.XXXA Bitten or stung by nonvenomous insect and other nonvenomous arthropods, initial encounter
CPT/HCPCS: 99281; A9270; 99282